=== PATIENT | male | born 1965 | race Caucasian/White ===

== ENCOUNTER → 2017-01-26 | Outpatient (CLI) | payer BC ==
[~2017-01-26] MED LIST: ALLO100T PO; ASPI81TA28 PO; ATOR-24 PO; AZEL0.15 NAE; CHOL20007 PO; CYCL10TA6 PO; HYG/25 PO; IBUP-1105 PO; MELO15TA4 PO; MOME100A INH; NAPR500T3 PO; NSNN50; OXYC-57 PO; SODI1PST MT
[2017-01-26 12:18] LABS: BASO % 0.5 %; BASO ABS # 0.03 K/uL (0-0.2); COMPLETE YES; EOS % 8.6 %; HEMATOCRIT 45.2 % (42-52); IG% 0.2 %; LYMPH % 27.4 %; LYMPH ABS # 1.65 K/uL (1.2-3.4); MEAN CELL VOLUME 89.2 fL (80-100); MEAN CORPUSCULAR HEMOGLOBIN 29.6 pg (25-34); MEAN CORPUSCULAR HGB CONC 33.2 g/dl (32-36); MEAN PLATELET VOLUME 11.5 fL (7.4-10.4); NEUT % 53.3 %; PLATELET COUNT 232 K/uL (130-400); RED BLOOD COUNT 5.07 M/uL (4.7-6.1); WHITE BLOOD COUNT 6.02 K/uL (4.8-10.8)
[2017-01-26 12:26] LABS: BLOOD UREA NITROGEN 18 mg/dl (7-18); BUN/CREATININE RATIO 20.7 (10-20); CREATININE 0.86 mg/dl (0.60-1.40)
[2017-01-26 12:29] LABS: ALT/SGPT 44 U/L (12-78); AST/SGOT 20 U/L (15-37); BLOOD UREA NITROGEN 18 mg/dl (7-18); BUN/CREATININE RATIO 20.5 (10-20); CARBON DIOXIDE 26 mmol/L (21-32); CHLORIDE 108 mmol/L (98-107); CREATININE 0.88 mg/dl (0.60-1.40); GLUCOSE 119 mg/dl (70-99); POTASSIUM 4.1 mmol/L (3.5-5.1); SODIUM 141 mmol/L (136-145)
[2017-01-26 12:33] LABS: ALB/GLOB RATIO 1.3 (0.9-2); ALKALINE PHOSPHATASE 52 U/L (45-117); CHOLESTEROL/HDL RATIO 3.6; RHEUMATOID FACTOR < 10.0 U/mL (0-15); URIC ACID 6.1 mg/dl (2.6-7.2)
[2017-01-26 12:34] LABS: CALCIUM 9.1 mg/dl (8.5-10.1)
[2017-01-26 14:09] LABS: LYME DISEASE AB IGG NEG (NEG)
[2017-01-26 14:12] LABS: LYME DISEASE AB IGM NEG (NEG)
== END | disposition home or self-care (01) ==
LOC: C.LABPVFM 07:16
PROVIDERS: ATTEND Family Medicine
DX: N40.0 Benign prostatic hyperplasia without lower urinary tract symptoms (principal); R53.83 Other fatigue; M10.9 Gout, unspecified; E78.5 Hyperlipidemia, unspecified; I10 Essential (primary) hypertension; R73.01 Impaired fasting glucose; J45.909 Unspecified asthma, uncomplicated; Z11.59 Encounter for screening for other viral diseases; M25.549 Pain in joints of unspecified hand

== ENCOUNTER → 2017-02-11 | Outpatient (CLI) | payer BC ==
--- NOTE | 2017-02-11 10:37 | DIAGNOSTIC IMAGING REPORT ---
CHEST 2 VIEWS ROUTINE CLINICAL HISTORY: J45.909 Asthma COMPARISON STUDY: 11/02/2014 FINDINGS: The heart remains at the upper limits of normal in size. There is borderline elevation of the right hemidiaphragm. There is no failure. No focal pulmonary consolidation. No pleural effusions are visualized.[ IMPRESSION: No active disease in the chest. Electronically signed by: Júnior Saenz M.D. 02/11/2017 10:35 AM Dictated Date/Time: 02/11/2017 10:35 AM
== END | disposition home or self-care (01) ==
LOC: C.RADPV 10:16
PROVIDERS: ATTEND Family Medicine
DX: J45.909 Unspecified asthma, uncomplicated (principal)

== ENCOUNTER 2017-02-13 20:36 | Emergency (ER) | payer BC ==
[~2017-02-13] VITALS: Ht 180.3 cm; Wt 105.5 kg
[~2017-02-13 20:36] MED LIST changes: -ALLO100T PO; -ASPI81TA28 PO; -CHOL20007 PO; -HYG/25 PO; -SODI1PST MT
[2017-02-13 20:41] VITALS: TEMP 36.7; Ht 180.3 cm; Wt 105.5 kg
[2017-02-13] MEDS ORDERED: ALLO100T PO (21:16)
[2017-02-13] MEDS ORDERED: HYG/25 PO (21:16)
[2017-02-13] MEDS ORDERED: ASPI81TA28 PO (21:18)
[2017-02-13] MEDS ORDERED: CHOL20007 PO (21:19)
[2017-02-13] MEDS ORDERED: SODI1PST MT (21:23)
--- NOTE | 2017-02-13 21:28 | DIAGNOSTIC IMAGING REPORT ---
LEFT ANKLE 3 VIEWS CLINICAL HISTORY: Left ankle injury. FINDINGS: 3 views of left ankle are obtained. No prior studies are available for comparison at the time of dictation. The skeletal structures are well mineralized. No fracture is seen. The ankle mortise is intact. There is a joint effusion. Soft tissue edema is present around the ankle. A dorsal calcaneal enthesophyte is observed. IMPRESSION: Soft tissue swelling and joint effusion. No fracture is seen. Electronically signed by: Jose Martin Cao M.D. 02/13/2017 9:27 PM Dictated Date/Time: 02/13/2017 9:26 PM
--- NOTE | 2017-02-13 21:58 | EMERGENCY ROOM VISIT NOTE ---
ED Visit Note First contact with patient: 20:43 CHIEF COMPLAINT: Ankle pain HISTORY OF PRESENT ILLNESS: This 51-year-old male patient presents to the emergency department by private vehicle after sustaining an injury to the left ankle and foot with a twisting, inversion motion earlier today. The patient states that he was doing yard work and stepped in a hole in the yard, twisting the ankle. The patient complains of pain along the outside of the ankle. The patient denies pain of the foot. The patient rates the pain as aching and 3/ 10. The patient is able to bear weight on the foot, but states it is painful to do so. Constant pain, worse with movement, weight bearing, and the dependent position. No knee pain, the patient is able to move their toes. No numbness or weakness of the foot, no laceration. The patient has not had a previous fracture to this ankle. The patient has taken no medication for the pain. The patient denies any other injury. REVIEW OF SYSTEMS: A 6 system review of systems was completed with positives and pertinent negatives listed in the HPI. ALLERGIES: No known drug allergies MEDICATIONS: See EMR PMH: Hypertension, hyperlipidemia SOCIAL HISTORY: The patient lives locally with family. PHYSICAL EXAM: Vital Signs: Reviewed Nurse's notes, vital signs stable. GENERAL : This is a 51-year-old male, no acute distress, but appears in pain, well- developed, well-nourished. MENTAL STATUS: Alert, oriented to person place and time, and cooperative. MUSCULOSKELETAL: The left ankle is swollen and tender over the lateral malleolus, but the skin is intact and there is no ligamentous instability. There is no fifth metatarsal tenderness. There is no tenderness over the rest of the foot. There is no calf or tibia/fibular tenderness. There is no visual deformity. The foot and toes are warm and well-perfused. Dorsalis pedis pulse 2+. Sensation to pain and light touch is intact. Capillary refill less than 2 seconds. RADIOGRAPHIC FINDINGS: LEFT ANKLE 3 VIEWS CLINICAL HISTORY: Left ankle injury. FINDINGS: 3 views of left ankle are obtained. No prior studies are available for comparison at the time of dictation. The skeletal structures are well mineralized. No fracture is seen. The ankle mortise is intact. There is a joint effusion. Soft tissue edema is present around the ankle. A dorsal calcaneal enthesophyte is observed. IMPRESSION: Soft tissue swelling and joint effusion. No fracture is seen. EMERGENCY DEPARTMENT COURSE: I examined the patient. Medication list was reviewed by myself. X-rays of the left ankle were reviewed by myself and read by radiology and reveal no acute fracture or dislocation. Gel ankle splint was applied to the ankle under my direction and the position was satisfactory. Neurovascular status was rechecked and intact. The patient was instructed on the use of crutches. Conservative measures were discussed. He will follow-up with his primary care provider or orthopedics as needed. The patient was discharged home in good condition. DIAGNOSIS: Left ankle sprain Problem List Medical Problems: (1) Asthma Status: Chronic Current/Historical Medications Scheduled Allopurinol (Zyloprim), 100 MG PO DAILY Aspirin (Aspirin Ec), 81 MG PO DAILY Atorvastatin (Lipitor), 40 MG PO DAILY Azelastine Hcl (Astepro), 2 SPRY EBEN DAILY Chlorthalidone (Hygroton), 25 MG PO DAILY Cholecalciferol (Vitamin D3), 4,000 UNITS PO 5XWK Mometasone Furoate (Nasal) (Nasonex), 2 SPRAY NA DAILY Mometasone Furoate-Formoterol (Dulera 100/5 Mcg), 2 PUFFS INH BID Sodium Fluoride (Dental) (Prevident [address]), 1 DOSE MT DAILY Allergies Coded Allergies: No Known Allergies (Unverified , 09/19/11) Vital Signs Date Time Temp Pulse Resp B/P (MAP) Pulse Ox O2 Delivery O2 Flow Rate FiO2 02/13/17 22:12 82 16 129/85 95 02/13/17 20:41 36.7 99 18 146/90 94 Room Air Departure Information Impression Primary Impression: Left ankle sprain Dispostion Home / Self-Care Condition GOOD Referrals Saji Nieves M.D. (PCP) Patient Instructions My [facility] Additional Instructions You have been treated in the Emergency Department for an Ankle sprain. For pain control, you can use the following [id number] medicines (if >12 yo): - Regular strength (325mg/tab) Tylenol (acetaminophen) 2 tabs every 4-6 hours as needed. Do not exceed 12 tablets in a 24 hour period. Avoid taking more than 4 grams (4000 mg) of Tylenol per day. This includes any other sources of acetaminophen you may take on a regular basis. - Regular strength (200 mg/tab) Advil (ibuprofen) 1-2 tabs every 4-6 hours as needed. Do not exceed a dose of 3200 mg per day. If this is a recent injury (<24 hrs), ice can be applied to the area of pain for the first 3 days to help decrease pain and inflammation. Wear the ankle brace and use the crutches as needed for the next 4-5 days. Follow-up with your primary care provider or orthopedics if you have persistent pain. Return to the Emergency Department if your current symptoms worsen despite treatment course outlined above, or if you develop any of the following symptoms : intractable pain despite aforementioned treatment course or new onset of numbness or tingling of the foot. Problem Qualifiers Primary Impression: Left ankle sprain Encounter type: initial encounter Involved ligament of ankle: unspecified ligament Qualified Codes: S93.402A - Sprain of unspecified ligament of left ankle, initial encounter
[2017-02-13 22:12] VITALS: BP 129/85; PULSE 82; O2SAT 95
== END 2017-02-13 22:05 | disposition home or self-care (01) ==
LOC: C.EDB 20:37 → C.EDD 22:05
DX: S93.402A Sprain of unspecified ligament of left ankle, initial encounter (principal); W17.2XXA Fall into hole, initial encounter; Y92.096 Garden or yard of other non-institutional residence as the place of occurrence of the external cause; I10 Essential (primary) hypertension; E78.5 Hyperlipidemia, unspecified; J45.909 Unspecified asthma, uncomplicated

== ENCOUNTER → 2017-02-23 | Outpatient (CLI) | payer BC ==
[~2017-02-23] MED LIST changes: +ALLO100T PO; +ASPI81TA28 PO; +CHOL20007 PO; -CYCL10TA6 PO; +HYG/25 PO; -IBUP-1105 PO; -MELO15TA4 PO; -NAPR500T3 PO; -OXYC-57 PO; +SODI1PST MT
--- NOTE | 2017-02-23 09:14 | DIAGNOSTIC IMAGING REPORT ---
RENAL ULTRASOUND HISTORY: Pain. Cyst. N28.1 COMPARISON: 02/12/2016 FINDINGS: Right kidney: Maximum dimension 11.1 cm. No evidence for hydronephrosis. Mild cortical scarring Left kidney: Dimension 13.5 cm. Several parapelvic cysts measuring up to 5 cm. No evidence for hydronephrosis. Normal corticomedullary differentiation and cortical thickness. Bladder: No bladder wall thickening. The bilateral ureteral jets were identified. IMPRESSION: Several simple left renal cyst. No evidence for hydronephrosis. Mild cortical scarring right kidney. Electronically signed by: Kash Weston M.D. 02/23/2017 9:12 AM Dictated Date/Time: 02/23/2017 9:10 AM
== END | disposition home or self-care (01) ==
LOC: C.ULTR 08:37
PROVIDERS: ATTEND Urology
DX: Q61.00 Congenital renal cyst, unspecified (principal)

== ENCOUNTER → 2017-08-16 | Outpatient (CLI) | payer BC ==
[2017-08-16 13:15] LABS: ALT/SGPT 106 U/L (12-78); AST/SGOT 57 U/L (15-37); BLOOD UREA NITROGEN 13 mg/dl (7-18); BUN/CREATININE RATIO 13.4 (10-20); CALCIUM 8.6 mg/dl (8.5-10.1); CARBON DIOXIDE 29 mmol/L (21-32); CHLORIDE 102 mmol/L (98-107); CREATININE 0.96 mg/dl (0.60-1.40); GLUCOSE 121 mg/dl (70-99); POTASSIUM 3.9 mmol/L (3.5-5.1); SODIUM 135 mmol/L (136-145)
[2017-08-16 13:18] LABS: ALB/GLOB RATIO 0.9 (0.9-2); ALKALINE PHOSPHATASE 65 U/L (45-117); CHOLESTEROL 125 mg/dl (0-200); CHOLESTEROL/HDL RATIO 2.8; HDL CHOLESTEROL 44 mg/dl; LDL CHOLESTEROL CALCULATED 59 mg/dl; TRIGLYCERIDES 111 mg/dl (0-150); VERY LOW DENSITY LIPOPROT CALC 22 mg/dl
== END | disposition home or self-care (01) ==
LOC: C.LABPVFM 07:38
PROVIDERS: ATTEND Family Medicine
DX: M10.9 Gout, unspecified (principal); E78.5 Hyperlipidemia, unspecified; M54.12 Radiculopathy, cervical region; J45.909 Unspecified asthma, uncomplicated; R05 Cough; G47.9 Sleep disorder, unspecified

== ENCOUNTER → 2017-09-09 | Outpatient (CLI) | payer BC ==
[~2017-09-09] MED LIST changes: +ACET-1311 PO; +ATOR-22 PO; +CHOL2000 PO; +IBUP-1450 PO; +LSN10 PO; +MOME6000 NAE; +NRV/5 PO; +PRLSR20 PO; +RANI150T2 PO
--- NOTE | 2017-09-10 05:02 | PAP/PSG TECHNICIAN REPORT ---
[facility] Direct Marketing Intern Polysomnogram Report Study name: None Report date: 09/10/2017 Study date: 09/09/2017 Referring Physician: Dr. Peterson Chou DO Name: CAITLYN HULL Interpreting Physician: Peterson Chou D.O. Date of : 1965 Direct Marketing Intern: BETTY Childs. Sex: Male Age: 51 StudyType: PSG Weight: 240 lbs Height: 51 years, Height 5' 11" Neck Circum:16.5inches BMI: 33.47 Medications: Ranitidine HCl 150mg, Amoxicillin-Pot Clavulanate 875-125mg, Mometasone Furoate 50mcg/act, Dulera 100-5mcg/act, Allopurinol 100mg, ASA 81mg, Atorvastatin Calcium 40mg, Amlodipine Besylate 5mg, Chlorthalidone 25mg, Vit D3, Azelastine HCl, Advil Patient History Study started on room air with no ETCO2 monitoring in room #8. 51 yr old male here tonight for a possible split study if AHI>30. He complains of EDS and snoring. He sleeps in a different room from his because he is so restless. His hands and arms are numb and he also moves his legs. He goes from side to side. He had a HST done in February that had an NASH of 6.2. His ESS=10/24. Neck circ=16.5inches Parameters Monitored NPSG: E1-M2, E2-M1, Fp1-M2, Fp2-M1, F3-M2, F4-M2, F4-M1, C3-M2, C4-M2, C4-M1, O1-M2, O2-M2, O2-M1, T3-M2, T4-M1, P3-M2, P4-M1, CHIN1, CHIN2, HR, EKG, Legs, PFLOW, SNOR, FLOW, CFLOW, Tidal Volume, THOR, ABDO, SpO2, PLTH, CPRESS, ETCO2 Wave, ETCO2, pH Sleep Architecture Sleep Stages Time at Lights Off 8:43:20 PM STAGES Time (min.) TST (%) Time at Lights On 4:43:50 AM Wake 108.0 -- Total Recording Time (TRT) 480.50 min. N1 48.5 13 Total Sleep Period (TSP) 440.0 min. N2 216.0 58 Total Sleep Time (TST) 372.5min. N3 47.5 13 Awake Time 108.0 min. REM 60.5 16 Wake after Sleep Onset 94.0 min. Sleep Efficiency (SE) 78 % Sleep Onset Latency (TRISH) 14.0 min. Number of Stage 1 Shifts None Awakenings 54 Stage Changes 192 Number of REM periods 18 REM 60.5 16 REM Latency 130.5 min. NREM 312.0 84 Body Position Analysis Supine Right Left Side Prone Vertical Total Sleep Time (min.) 329.5 22.9 107.2 130.16 0.0 0.0 Total Sleep Time (%) 65% 6% 29% 35 0% N/A% Total Sleep Time REM (min.) 17.5 10.5 32.5 None 0.0 0.0 Total Sleep Time NREM (min.) 224.8 12.4 74.7 None 0.0 0.0 Intermittent Wake (min.) 87.2 3.4 17.4 None 0.0 0.0 Total Sleep Period (%) 67% None None None None None Arousals Myoclonus (PLM) * Events Count Index Events Count Index Spontaneous 30 5 Events Awake (PLMW) 286 158.9 Respiratory 19 4.0 Events Asleep w/ Arousal (PLMA) 29 4.7 PLM 28 5 Events Asleep w/o Arousal (PLMS) 198 31.9 Snoring 1 0 Total Asleep 227 36.6 Total 78 13 Total 513 64 Respiratory Analysis * CA OA MA CH H RERA Total Count 0 0 0 0 51 0 51 Index 0.0 0.0 0.0 0 8.2 0 8.2 Mean Duration 0.0 0.0 0.0 0.00 20.9 0.0 20.9 Longest Duration 0.0 0.0 0.0 0.00 0.0 0.0 58.3 Respiratory Event Summary Total Supine ~Supine Right Left Prone REM NREM Apneas Count 0 0 0 0 0 N/A 0 0 Index 0.0 0 0 0.0 0.0 N/A 0 0 Hypopneas (4% Desat) Count 51 35 16 5 11 N/A 32 19 Index 8.2 8.7 7 13.1 6.2 N/A 31.7 3.7 Apneas & All Hypopneas Count 51 35 16 5 11 N/A 32 19 Index 8.2 9 7 13 6 N/A 31.7 3.7 Respiratory Events (Audit Mgr+All Hyp+RERA) Count 51 35 16 5 11 N/A 32 19 Index 8.2 9 7 13.1 6.2 N/A 31.7 3.7 Respiratory Related Arousal Count 19 35 5 2 3 N/A 12 13 Index 4.0 5 2 5 2 N/A 12 3 Snoring Analysis Supine Right Left Prone REM NREM Total Snore duration 0.9 min Snores count 21 2 7 N/A 2 28 30 Snore mean duration 1.9 Sec Snores index 5 5 4 N/A 2.0 5.4 4.8 TST with snoring (%) 0.2% Desaturation Event Summary: Minimum %SpO2 Event Count Mean/Min/Max Duration(sec.) Desaturation Index % Time In Bed > 90 83 27.8 / 10.8 / 60.0 12.6 84.5 86 - 90 11 25.0 / 6.5 / 48.5 9.2 15.3 81 - 85 0 N/A 0.0 0.2 76 - 80 0 N/A 0.0 0.0 71 - 75 0 N/A 0.0 0.0 66 - 70 0 N/A 0.0 0.0 61 - 65 0 N/A 0.0 0.0 56 - 60 0 N/A 0.0 0.0 51 - 55 0 N/A 0.0 0.0 < 50 0 N/A 0.0 0.0 Total REM NREM Awake <50% 0.0 min. 0.0 min. 0.0 min. 0.0 min. 51 - 60% 0.0 min. 0.0 min. 0.0 min. 0.0 min. 61 - 70% 0.0 min. 0.0 min. 0.0 min. 0.0 min. 71 - 80% 0.0 min. 0.0 min. 0.0 min. 0.0 min. 81 - 90% 72.6 min. 15.2 min. 43.8 min. 13.7 min. 91 - 100% 395.1 min. 45.2 min. 267.8 min. 82.1 min. Average 92 92 92 93 Minimum SpO2 81 85 83 81 Desaturation Event Index 11.0 33.7 4.8 18.3 # Desat. Events below 89% 27 16 5 6 Time(%) with Saturation below 89% 2.0 1.0 0.6 0.4 Time(min.) with Saturation below 89% 9.4 4.8 2.7 1.8 Time (mins) REM (mins) NREM (mins) % of TST SpO2 Below 90% 45 29 N16 4.6 SpO2 Below 88% 10 0 0 1 Heart Rate Analysis Min (bpm) Max (bpm) Average (bpm) Awake 45 281 65 NREM 45 83 62 REM 43 74 57 Overall 43 83 61 Supplemental O2 Values Minimum O2 level: None Value Start Time End Time Direct Marketing Intern Comments Mr. Hull slept in the right, left and supine positions with the head of his bed slightly elevated. No cardiac arrhythmia noted. PLM's were noted. No bruxism noted. Snoring was noted and scored as a 1 on a scale of 1 through 5. (0=no snoring, 5=snoring loud enough to be heard through a closed door or down the almanza way). He did not use the restroom during the night. He stated that he slept a little worse than usual because he woke up more. He did state that his hands and arms were not as stiff as they usually are and he attributes that to the slight elevation of the head of the bed. The final report will be interpreted and signed by a sleep physician. The completed physician report will then be placed in the patient medical record. Therapy (cm H2O) 0 TIB (min.) 480.5 TST (min.) 372.5 Sleep Onset (min.) 14.0 REM Onset From Sleep (min.) 130.5 Sleep Efficiency % 78 Wakefulness (%) 22 Wakefulness (min.) 108.0 NREM 1 (%) 13 NREM 1 (min.) 48.5 NREM 2 (%) 58 NREM 2 (min.) 216.0 NREM 3 (%) 13 NREM 3 (min.) 47.5 REM (%) 16 REM (min.) 60.5 # Arousals 78 Arousal Index 13 # Snore 30 Snore Index 4.8 AHI 8.2 AHI Supine 9 AHI Non-Supine 7 NREM AHI 3.7 REM AHI 31.7 RDI 8.2 # Obstructive Apnea 0 # Central Apnea 0 # Mixed Apnea 0 # Hypopneas 51 RERAs 0 Total Respiratory Events 52 Time Below SpO2 89% (min.) 7.5 Mean NREM SpO2 (%) 92 Mean REM SpO2 (%) 92 Mean Sleep SpO2 (%) 92 Min NREM SpO2 (%) 83 Min REM SpO2 (%) 85 Position Supine (min.) 329.5 Position Non-supine (min.) 130.2 LM Index Sleep 36.6 LM Index NREM 29.2 LM Index REM 74.4 Mean Heart Rate (bpm) 61 Min Heart Rate (bpm) 43
--- NOTE | 2017-09-14 17:40 | Sleep Study ---
Sleep Study Report Date of Service: 09/09/2017 Sleep Study Report CLINICAL DATA: The patient is a 51-year-old male with a history of severely restless sleep. He has had nocturnal gasping. He has had excessive daytime tiredness. There is a history of sleep walking. A home sleep study done in February 2017 showed mild sleep apnea with an apnea-hypopnea index of 6.2. He has a history of very restless legs. This was an in-lab overnight polysomnography. SLEEP ARCHITECTURE: The total sleep period was 440 minutes. The total sleep time was 372.5 minutes. The sleep efficiency was moderately decreased to 78 percent. Sleep latency was normal at 14 minutes. Wake after sleep onset was increased to 94 minutes. The REM latency was prolonged to 130.5 minutes. Sleep consisted of stage N1 13 percent, stage N2 58 percent, stage N3 13 percent, stage REM 16 percent. AROUSAL DATA: The patient had a total of 78 arousals including 30 spontaneous arousals, 19 respiratory arousals, 28 PLM arousals, and 1 snoring arousal. The arousal index was 13. PLM DATA: The patient had a total of 227 periodic limb movements for a PLM index of 36.6. There were 29 arousals associated with limb movements for a PLM arousal index of 4.7. He also had very frequent limb movements while awake. EKG: The underlying rhythm was normal sinus. The cardiac rates 43-83 beats per minute with an average heart rate of 61 beats per minute. No arrhythmias were noted. RESPIRATORY DATA: The patient had a total of 51 respiratory events, all hypopneas. Hypopneas were scored according to the 4 percent desaturation rule. The mean duration of the hypopneas was 20.9 seconds. The apnea-hypopnea index was 8.2. This would reflect mild obstructive sleep apnea. OXIMETRY DATA: The average saturation was 92 percent. The minimum saturation was 81 percent. There was a total of 9.4 minutes with saturations less than 89 percent. HUMAN RESOURCES OPERATIONS MANAGER COMMENTS: The patient slept on the right, left, and supine positions with the head of his bed slightly elevated. No cardiac arrhythmia noted. PLMS were noted. No bruxism noted. Snoring was noted and scored as a 1 on a scale of 1 through 5. He did not use the restroom during the night. He did state that his hands and arms were not as stiff as they usually are and he attributes that to the slight elevation of the head of the bed. IMPRESSIONS: 1. Mild obstructive sleep apnea 2. Periodic limb movement disorder with a history of restless legs, suggestive for restless leg syndrome. COMMENTS: The patient had mild sleep apnea. This correlated well with his home sleep study. He did however have frequent limb movements both during wake and during sleep. There was no sleep walking during this study. There was a significant increase in the frequency of his events during REM sleep, and the REM apnea- hypopnea index was 31.7. In light of the patient's symptoms, treatment would be advised. RECOMMENDATIONS: 1. It is suggested that the patient be treated with nasal CPAP. This could be done by an in-lab CPAP titration study. Alternatively he could be treated with auto CPAP 2. Consideration is given to a trial of medication for the underlying limb movement disorder. Pramipexole would be the primary drug considered. 3. Weight loss is advised in light of the elevation of body mass index of 33.47. 4. The patient should be advised the appropriate principles of sleep hygiene including having a regular sleep-wake schedule and allowing sufficient sleep time at night of approximately 7.5 hours. Copies To 1: Saji Nieves M.D.; Peterson Chou DO
== END | disposition home or self-care (01) ==
LOC: C.NEUR 20:00
PROVIDERS: ATTEND Internal Medicine Pulmonary Disease
DX: G47.33 Obstructive sleep apnea (adult) (pediatric) (principal); G25.81 Restless legs syndrome; F51.3 Sleepwalking [somnambulism]

== ENCOUNTER 2017-10-22 16:32 | Emergency (ER) | payer OTHER ==
[~2017-10-22] VITALS: Ht 180.3 cm; Wt 108.2 kg
[~2017-10-22 16:32] MED LIST changes: -ATOR-22 PO; -MOME6000 NAE; -NRV/5 PO; -RANI150T2 PO
[2017-10-22] MEDS ORDERED: SODIUM CHLORIDE 0.9% 1000ML 1,000 ML IV SCH (16:37)
--- NOTE | 2017-10-22 16:46 | EMERGENCY ROOM VISIT NOTE ---
History Report prepared by Devorah: Mark Flor Under the Supervision of: Dr. Jayjay Bentley M.D. First contact with patient: 16:30 Stated Complaint: unknown History of Present Illness The patient is a 51 year old male who presents to the Emergency Room with complaints of a persistent headache for the past 5 days. The patient states that he slipped on the ice 5 days ago, and since then he has had a headache, and he states that the headache has been the worst headache of his life, though right now it is a little better. The patient additionally states that he had neck pain, pressure behind his eyes, and this morning he was nauseous. He denies any abdominal pain. The patient reports that he has a history of jaw cancer, and he takes a daily baby aspirin. Source of History: patient Onset: 5 days ago Position: head Quality: ache Associated Symptoms: + neck pain, + nausea, No abdominal pain Note: Associated symptoms: Pressure behind the eyes Review of Systems See HPI for pertinent positives & negatives. A total of 10 systems reviewed and were otherwise negative. Past Medical & Surgical Medical Problems: (1) Asthma Family History Cancer Diabetes mellitus Heart disease Hypertension Social History Smoking Status: Never Smoker Alcohol Use: occasionally Drug Use: none Marital Status: Housing Status: lives with significant other Occupation Status: employed Current/Historical Medications Scheduled Allopurinol (Zyloprim), 100 MG PO BID Amlodipine Besylate (Amlodipine Besylate), 5 MG PO DAILY Aspirin (Aspirin Ec), 81 MG PO DAILY Atorvastatin (Lipitor), 20 MG PO DAILY Azelastine Hcl (Astepro), 2 SPRY EBEN DAILY Cholecalciferol (Vitamin D3), 4,000 UNITS PO DAILY Mometasone Furoate (Nasal) (Mometasone Furoate), 1 SPRAY EBEN DAILY Mometasone Furoate-Formoterol (Dulera 100/5 Mcg), 2 PUFFS INH NEEDED Ranitidine HCl (Ranitidine HCl), 150 MG PO BID Allergies Coded Allergies: No Known Allergies (Unverified , 09/19/11) Physical Exam Vital Signs Date Time Temp Pulse Resp B/P (MAP) Pulse Ox O2 Delivery O2 Flow Rate FiO2 10/22/17 17:55 36.8 82 16 158/99 96 10/22/17 17:30 36.8 86 16 158/99 96 Room Air 10/22/17 17:21 36.7 82 16 154/104 96 Room Air 10/22/17 17:00 87 24 188/95 95 Room Air 10/22/17 16:53 97 Room Air 10/22/17 16:40 84 10/22/17 16:37 36.6 84 15 180/102 98 Room Air Physical Exam GENERAL: Patient is a healthy-appearing well-nourished male HEAD: Normocephalic atraumatic. 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 EYES: Ocular movements intact pupils equal and react to light OROPHARYNX mucous membranes are moist no exudates present no erythema or edema present NECK: Supple no nuchal rigidity CHEST: Good equal expansion LUNGS: Clear and equal to auscultation CARDIAC: Normal S1 and S2 ABDOMEN: Soft nontender no guarding BACK: No CVA tenderness EXTREMITIES: No pain upon palpation normal muscle strength in all groups no clubbing cyanosis or edema NEURO: Patient is following commands and answering questions appropriately. Alert and oriented x3 Cranial Nerves 2-12 grossly intact Medical Decision & Procedures ER Provider Diagnostic Interpretation: Radiology results as stated below per my review and radiologist interpretation: [~ rep ct add3]] HEAD WITHOUT CONTRAST (CT) CLINICAL HISTORY: 51 years-old Male presenting with S09.90XA Head injury. TECHNIQUE: Multidetector CT imaging of the head was performed without the use of intravenous contrast. IV contrast: None. A dose lowering technique was used consistent with the principles of ALARA (as low as reasonably achievable). COMPARISON: None. CT DOSE (mGy.cm): The estimated cumulative dose is 712.55 mGy.cm. FINDINGS: [facility] [employer] Physician topogram: Unremarkable. Ventricles and sulci normal in size. Brain parenchyma normal in appearance with preserved leary-white differentiation. No midline shift. No hemorrhage or acute territorial infarct. Hyperdense subdural hematoma along the right tentorium extending along the right posterior aspect of the falx cerebri. Associated mild mass effect on the right occipital lobe. Paranasal sinuses and mastoid air cells clear. Calvarium intact. IMPRESSION: 1. Acute subdural hematoma layering along the right tentorium and right posterior falx cerebri. The report will be called/faxed according to standard departmental protocol. The patient has been sent to the emergency room directly from CT. Electronically signed by: Spencer Orozco M.D. 10/22/2017 4:30 PM Dictated Date/Time: 10/22/2017 4:27 PM CHEST ONE VIEW PORTABLE CLINICAL HISTORY: Stroke mental status change COMPARISON STUDY: 02/11/2017 FINDINGS: The bones soft tissues and hemidiaphragms are normal. The cardiomediastinal silhouette is normal. The lungs are clear. The pulmonary vasculature is normal. IMPRESSION: Negative chest. The above report was generated using voice recognition software. It may contain grammatical, syntax or spelling errors. Electronically signed by: Kash Weston M.D. 10/22/2017 5:12 PM Dictated Date/Time: 10/22/2017 5:11 PM Laboratory Results 10/22/17 16:41 Red Blood Count 5.42, Mean Corpuscular Volume 86.5, Mean Corpuscular Hemoglobin 30.4, Mean Corpuscular Hemoglobin Concent 35.2, Mean Platelet Volume 10.5, Neutrophils (%) (Auto) 56.1, Lymphocytes (%) (Auto) 31.6, Monocytes (%) (Auto) 9.4, Eosinophils (%) (Auto) 2.3, Basophils (%) (Auto) 0.4, Neutrophils # (Auto) 7.20, Lymphocytes # (Auto) 4.07, Monocytes # (Auto) 1.21, Eosinophils # (Auto) 0.30, Basophils # (Auto) 0.05 10/22/17 16:41 Test 10/22/17 16:41 10/22/17 16:53 10/22/17 16:55 White Blood Count 12.86 K/uL (4.8-10.8) Red Blood Count 5.42 M/uL (4.7-6.1) Hemoglobin 16.5 g/dL (14.0-18.0) Hematocrit 46.9 % (42-52) Mean Corpuscular Volume 86.5 fL (80-100) Mean Corpuscular Hemoglobin 30.4 pg (25-34) Mean Corpuscular Hemoglobin Concent 35.2 g/dl (32-36) Platelet Count 324 K/uL (130-400) Mean Platelet Volume 10.5 fL (7.4-10.4) Neutrophils (%) (Auto) 56.1 % Lymphocytes (%) (Auto) 31.6 % Monocytes (%) (Auto) 9.4 % Eosinophils (%) (Auto) 2.3 % Basophils (%) (Auto) 0.4 % Neutrophils # (Auto) 7.20 K/uL (1.4-6.5) Lymphocytes # (Auto) 4.07 K/uL (1.2-3.4) Monocytes # (Auto) 1.21 K/uL (0.11-0.59) Eosinophils # (Auto) 0.30 K/uL (0-0.5) Basophils # (Auto) 0.05 K/uL (0-0.2) RDW Standard Deviation 41.4 fL (36.4-46.3) RDW Coefficient of Variation 13.0 % (11.5-14.5) Immature Granulocyte % (Auto) 0.2 % Immature Granulocyte # (Auto) 0.03 K/uL (0.00-0.02) Prothrombin Time 10.0 SECONDS (9.0-12.0) Prothromb Time International Ratio 1.0 (0.9-1.1) Activated Partial Thromboplast Time 27.7 SECONDS (21.0-31.0) Partial Thromboplastin Ratio 1.1 Anion Gap 8.0 mmol/L (3-11) Est Creatinine Clear Calc Drug Dose 124.3 ml/min Estimated GFR () 114.7 Estimated GFR (Non- 99.0 BUN/Creatinine Ratio 13.3 (10-20) Calcium Level 10.2 mg/dl (8.5-10.1) Magnesium Level 2.2 mg/dl (1.8-2.4) Total Creatine Kinase 136 U/L (39-308) Creatine Kinase MB 2.4 ng/ml (0.5-3.6) Creatine Kinase MB Ratio 1.8 (0-3.0) Troponin I 0.034 ng/ml (0-0.045) Bedside Prothrombin Time INR 1.0 (0.9-1.1) Bedside Glucose 88 mg/dl (70-99) Labs reviewed by ED physician. Medications Administered Medications (Trade) Dose Ordered Sig/Brandon Route Start Time Stop Time Status Last Admin Dose Admin Sodium Chloride 1,000 ml @ 50 mls/hr Q20H IV 10/22/17 16:37 10/22/17 18:33 DC 2/9/18 17:01 50 MLS/HR ECG Indication: other (headache) Rate (beats per minute): 80 Rhythm: normal sinus Findings: no acute ischemic change, no ectopy Change: Patient's electrocardiogram per my interpretation. ED Course 1630: Past medical records reviewed. The patient was evaluated in room A1. A complete history and physical examination was performed. 1637: Sodium Chloride 1000 ml @ 50 mls/hr IV 1645: I discussed the patient's case with Dr. Nasim Ellington Emergency Physician, and he has accepted the patient as a transfer. He has agreed to evaluate the patient for further management and care. 1736: I reevaluated the patient, and I talked with his as well, and I discussed the treatment plan, and they are agreeable. The patient will be discharged to [facility] Medical Decision Differential diagnosis: Etiologies such as metabolic, infection, hypo/hyperglycemia, electrolyte abnormalities, cardiac sources, intracerebral event, toxicologic, neurologic, as well as others were entertained. This is a 51-year-old male who presents emergency department complaining of a fall. Since that time the patient is had a persistent headache along with nausea and vomiting. He was sent for an outpatient CAT scan of the head which was concerning for subarachnoid hemorrhage. For this reason the patient was sent immediately to the emergency department. Because there is no neurosurgeon available at [facility]. I did discuss the case with the emergency department on- call in [place]. The patient was readily accepted and transferred via ambulance. Medication Reconcilliation Current Medication List: was personally reviewed by me Blood Pressure Screening Patient's blood pressure: Elevated blood pressure Managed by Dr. Rouse Consults Time Called: 1640 Consulting Physician: Dr. Nasim Ellington Emergeny Physician Returned Call: 1644 I discussed the patient's case with Dr. Nasim Ellington Emergency Physician, and he has accepted the patient as a transfer. He has agreed to evaluate the patient for further management and care. Impression Primary Impression: Subarachnoid hemorrhage Scribe Attestation The scribe's documentation has been prepared under my direction and personally reviewed by me in its entirety. I confirm that the note above accurately reflects all work, treatment, procedures, and medical decision making performed by me. Departure Information Dispostion Transfer Acute Care Facility Referrals Saji Nieves M.D. (PCP)
[2017-10-22 16:53] VITALS: O2SAT 97
[2017-10-22 16:55] VITALS: Ht 180.3 cm; Wt 108.2 kg
[2017-10-22 17:11] LABS: BASO % 0.4 %; BASO ABS # 0.05 K/uL (0-0.2); EOS % 2.3 %; HEMATOCRIT 46.9 % (42-52); HEMOGLOBIN 16.5 g/dL (14.0-18.0); IG# 0.03 K/uL (0.00-0.02); LYMPH % 31.6 %; LYMPH ABS # 4.07 K/uL (1.2-3.4); MEAN CELL VOLUME 86.5 fL (80-100); MEAN CORPUSCULAR HEMOGLOBIN 30.4 pg (25-34); MEAN CORPUSCULAR HGB CONC 35.2 g/dl (32-36); MEAN PLATELET VOLUME 10.5 fL (7.4-10.4); MONO % 9.4 %; MONO ABS # 1.21 K/uL (0.11-0.59); NEUT % 56.1 %; PLATELET COUNT 324 K/uL (130-400); RED CELL DISTRIBUTION WIDTH SD 41.4 fL (36.4-46.3); WHITE BLOOD COUNT 12.86 K/uL (4.8-10.8)
[2017-10-22] MEDS ORDERED: RANI150T2 PO (17:12)
[2017-10-22] MEDS ORDERED: MOME6000 NAE (17:12)
[2017-10-22] MEDS ORDERED: ATOR-22 PO (17:12)
[2017-10-22] MEDS ORDERED: NRV/5 PO (17:12)
--- NOTE | 2017-10-22 17:13 | DIAGNOSTIC IMAGING REPORT ---
CHEST ONE VIEW PORTABLE CLINICAL HISTORY: Stroke mental status change COMPARISON STUDY: 02/11/2017 FINDINGS: The bones soft tissues and hemidiaphragms are normal. The cardiomediastinal silhouette is normal. The lungs are clear. The pulmonary vasculature is normal. IMPRESSION: Negative chest. The above report was generated using voice recognition software. It may contain grammatical, syntax or spelling errors. Electronically signed by: Kash Weston M.D. 10/22/2017 5:12 PM Dictated Date/Time: 10/22/2017 5:11 PM
[2017-10-22 17:14] LABS: PTT PATIENT 27.7 SECONDS (21.0-31.0)
[2017-10-22 17:29] LABS: CALCIUM 10.2 mg/dl (8.5-10.1); CREATININE 0.86 mg/dl (0.60-1.40); POTASSIUM 3.3 mmol/L (3.5-5.1)
[2017-10-22 17:34] LABS: CKMB 2.4 ng/ml (0.5-3.6)
[2017-10-22 17:55] VITALS: BP 158/99; PULSE 82; TEMP 36.8; O2SAT 96
== END 2017-10-22 17:59 | disposition short-term general hospital (02) ==
LOC: EDBD 16:32 → C.EDA 16:33
DX: R51 Headache (principal); W00.9XXA Unspecified fall due to ice and snow, initial encounter; M54.2 Cervicalgia; R11.2 Nausea with vomiting, unspecified; R03.0 Elevated blood-pressure reading, without diagnosis of hypertension; J45.909 Unspecified asthma, uncomplicated; L90.5 Scar conditions and fibrosis of skin; Z79.82 Long term (current) use of aspirin; Z83.3 Family history of diabetes mellitus; Z82.49 Family history of ischemic heart disease and other diseases of the circulatory system

== ENCOUNTER → 2017-10-22 | Outpatient (CLI) | payer OTHER ==
[~2017-10-22] MED LIST changes: -ACET-1311 PO; -CHOL2000 PO; -IBUP-1450 PO; -LSN10 PO; -PRLSR20 PO
--- NOTE | 2017-10-22 16:31 | DIAGNOSTIC IMAGING REPORT ---
HEAD WITHOUT CONTRAST (CT) CLINICAL HISTORY: 51 years-old Male presenting with S09.90XA Head injury. TECHNIQUE: Multidetector CT imaging of the head was performed without the use of intravenous contrast. IV contrast: None. A dose lowering technique was used consistent with the principles of ALARA (as low as reasonably achievable). COMPARISON: None. CT DOSE (mGy.cm): The estimated cumulative dose is 712.55 mGy.cm. 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 Ventricles and sulci normal in size. Brain parenchyma normal in appearance with preserved leary-white differentiation. No midline shift. No hemorrhage or acute territorial infarct. Hyperdense subdural hematoma along the right tentorium extending along the right posterior aspect of the falx cerebri. Associated mild mass effect on the right occipital lobe. Paranasal sinuses and mastoid air cells clear. Calvarium intact. IMPRESSION: 1. Acute subdural hematoma layering along the right tentorium and right posterior falx cerebri. The report will be called/faxed according to standard departmental protocol. The patient has been sent to the emergency room directly from CT. Electronically signed by: Spencer Orozco M.D. 10/22/2017 4:30 PM Dictated Date/Time: 10/22/2017 4:27 PM
== END | disposition home or self-care (01) ==
LOC: C.CTS 16:18
PROVIDERS: ATTEND Family Medicine
DX: I62.01 Nontraumatic acute subdural hemorrhage (principal)

== ENCOUNTER → 2018-01-10 | Outpatient (CLI) | payer OTHER ==
[~2018-01-10] MED LIST changes: +ATOR-22 PO; -ATOR-24 PO; -HYG/25 PO; +MOME6000 NAE; +NRV/5 PO; -NSNN50; +RANI150T2 PO; -SODI1PST MT
[2018-01-10 13:23] LABS: HEMOGLOBIN A1C 6.1 % (4.5-5.6)
[2018-01-10 13:30] LABS: ALBUMIN 4.1 gm/dl (3.4-5.0); ALT/SGPT 46 U/L (12-78); AST/SGOT 30 U/L (15-37); BLOOD UREA NITROGEN 17 mg/dl (7-18); CALCIUM 9.2 mg/dl (8.5-10.1); CARBON DIOXIDE 26 mmol/L (21-32); CREATININE 0.88 mg/dl (0.60-1.40); GLUCOSE 94 mg/dl (70-99); POTASSIUM 4.1 mmol/L (3.5-5.1); SODIUM 137 mmol/L (136-145)
[2018-01-10 13:34] LABS: ALKALINE PHOSPHATASE 54 U/L (45-117); TOTAL PROTEIN 7.5 gm/dl (6.4-8.2)
== END | disposition home or self-care (01) ==
LOC: C.LABPVFM 10:43
PROVIDERS: ATTEND Family Medicine
DX: R74.8 Abnormal levels of other serum enzymes (principal); R73.01 Impaired fasting glucose

== ENCOUNTER → 2018-01-31 | Outpatient (CLI) | payer OTHER ==
--- NOTE | 2018-01-31 11:25 | DIAGNOSTIC IMAGING REPORT ---
CERVICAL SPINE MRI HISTORY: M54.12 Cervical [id number] Paresthesia and pain of extre TECHNIQUE: Multiplanar multisequence MRI of the cervical spine was performed without the use of contrast. COMPARISON STUDY: Cervical spine MRI 07/27/2014. FINDINGS: Straightening of the cervical spine. 2 mm of retrolisthesis of C6 on C7. Mild disc space. C5-C6. Moderate to space narrowing at C6-C7 with mild endplate edema. No fractures within the cervical spine. Mild to moderate facet osteoarthritis throughout the cervical spine. Prevertebral soft tissues and the C1-C2 interval are intact. Prevertebral soft tissues and the C1-C2 interval are intact. The cervical spinal cord the majority normal signal intensity. The posterior fossa is unremarkable. Mild motion artifact. Incidental is made of a small right paracentral focal disc protrusion at T2-T3 which abuts the right anterior cord. C2-C3: No significant central canal narrowing. Moderate right-sided neural foraminal narrowing due to the uncovertebral and facet hypertrophy. C3-C4: No central canal narrowing. Severe left-sided neural foraminal narrowing due to the vertebral and facet hypertrophy. C4-C5: Small broad-based posterior disc bulge resulting in partial effacement of the anterior thecal sac without cord deformity. Severe right neural foraminal narrowing. C5-C6: Broad-based posterior disc osteophyte complex which abuts and slightly deforms the anterior cord. There is severe bilateral neural foraminal narrowing. C6-C7: Broad-based posterior disc osteophyte complex which results in near-complete effacement of the anterior thecal sac without cord deformity. Severe bilateral neural foraminal narrowing. C7-T1: No significant central canal or neural foraminal narrowing. IMPRESSION: 1. Straightening of the cervical spine. 2. Mild disc space to C5-C6 and moderate to space narrowing at C6-C7. Endplate edema at C6-C7 is likely due to the degenerative change. 3. Multilevel cervical spondylosis most pronounced at the C5-C6 and C6-C7 levels as described above. 4. Multilevel bilateral neural foraminal narrowing also described above. 5. Incidental is made of a small right paracentral focal disc protrusion at T2-T3 which abuts the right anterior cord. Electronically signed by: Radames Dawson M.D. 01/31/2018 11:24 AM Dictated Date/Time: 01/31/2018 11:07 AM
== END | disposition home or self-care (01) ==
LOC: C.MRI 09:58
PROVIDERS: ATTEND Family Medicine
DX: M47.892 Other spondylosis, cervical region (principal); M99.81 Other biomechanical lesions of cervical region; M51.24 Other intervertebral disc displacement, thoracic region; M54.12 Radiculopathy, cervical region; R20.2 Paresthesia of skin

== ENCOUNTER → 2018-04-01 | Outpatient (CLI) | payer OTHER ==
[~2018-04-01] MED LIST changes: +ACET-1311 PO; -ASPI81TA28 PO; +IBUP-1450 PO; +LSN10 PO; -NRV/5 PO; +PRLSR20 PO
[2018-04-01 13:02] LABS: BLOOD UREA NITROGEN 16 mg/dl (7-18); CALCIUM 9.4 mg/dl (8.5-10.1); CARBON DIOXIDE 25 mmol/L (21-32); CREATININE 0.88 mg/dl (0.60-1.40); GLUCOSE 115 mg/dl (70-99); POTASSIUM 4.1 mmol/L (3.5-5.1); SODIUM 138 mmol/L (136-145)
== END | disposition home or self-care (01) ==
LOC: C.LABPVFM 07:51
PROVIDERS: ATTEND Family Medicine
DX: I10 Essential (primary) hypertension (principal); K21.9 Gastro-esophageal reflux disease without esophagitis; M48.02 Spinal stenosis, cervical region